=== PATIENT | male | born 1980 | race African-American/Black ===

== ENCOUNTER 2018-12-13 22:05 | Emergency (ER) | payer OTHER ==
[~2018-12-13] VITALS: Ht 185.4 cm; Wt 121.6 kg
[2018-12-13] MEDS ORDERED: AMLODIPINE BESY10 MG PO (22:21)
[2018-12-13] MEDS ORDERED: HYDROCHLOROTHIA25 M1 PO (22:22)
[2018-12-13 23:53] LABS: ABSOLUTE NEUTROPHILS 3.5 thou/uL (1.4-8.2); BASOPHILS 0.9 % (0.0-2.0); EOSINOPHILS 2.4 % (0.0-3.0); HEMATOCRIT 44.3 % (42.0-52.0); HEMOGLOBIN 15.3 gm/dL (14.0-18.0); LYMPHOCYTES 42.1 % (24.0-44.0); MCH 29.4 pg (26.0-34.0); MCHC 34.6 g/dL (28.0-37.0); MCV 84.8 fL (80.0-100.0); MONOCYTES 7.6 % (1.0-8.0); PLATELET COUNT 198 thou/uL (150-400); RBC 5.22 mil/uL (4.50-6.00); RDW 13.5 % (10.5-14.5); WBC 7.5 thou/uL (4.0-11.0)
[2018-12-14 00:05] LABS: ANION GAP 8 mmol/L (7-16); BUN 16 mg/dL (7-18); CALCIUM 9.2 mg/dL (8.5-10.1); CHLORIDE 98 mmol/L (98-107); CO2 32 mmol/L (21-32); CREATININE 1.4 mg/dL (0.7-1.3); GLUCOSE 110 mg/dL (74-106); POTASSIUM 3.3 mmol/L (3.5-5.1); SODIUM 138 mmol/L (136-145)
[2018-12-14 00:18] LABS: TROPONIN-I <0.06 ng/mL (<0.06)
[2018-12-14 01:04] VITALS: BP 150/101
--- NOTE | 2018-12-14 08:02 | EKG ---
[address] [address] [place] [place] [address] ELECTROCARDIOGRAM REPORT Name: LIZZETTE TORRES Room #: DEP Fercho#: [id number] ������������������ Admission: 12/13/18 ������������������ Attend Phys: Discharge: 12/14/18 ������������������ Date of : 80 Report #: [id number] ����������������������������������������������������������������� [id number] THIS REPORT FOR: //name// [facility] ED Test Date: 2018-12-13 Test Time: 23:49:27 Pat Name: LIZZETTE TORRES Department: Room: Gender: Physician [facility] : 1980 Requested By: Alden Betancourt Order Number: [id number] MD: Tray Chaudhary Measurements Intervals [place] Rate: 65 P: 30 [place]: 171 QRS: -17 QRSD: 108 T: 159 QT: 421 QTc: 438 Interpretive Statements Sinus rhythm Left ventricular hypertrophy Abnrm T, consider ischemia, anterolateral lds No previous ECG available for comparison Electronically Signed On 12-14-2018 8:02:21 CDT by Tray Chaudhary [email or web address] ��������������������������������������������� <ELECTRONICALLY SIGNED> ���������������������������������������� By: Tray Chaudhary MD, [facility] ��������������������������������������������� 12/14/18 [id number] Tray Chaudhary MD, FACC /EPI
== END 2018-12-14 01:05 | disposition home or self-care (01) ==
LOC: ER 22:05
PROVIDERS: Emergency Medicine
DX: I10 Essential (primary) hypertension (principal); R42 Dizziness and giddiness; F17.210 Nicotine dependence, cigarettes, uncomplicated; Z88.8 Allergy status to other drugs, medicaments and biological substances

== ENCOUNTER 2019-02-06 05:38 | Day surgery (SDC) | payer OTHER ==
[~2019-02-06] VITALS: Ht 185.4 cm; Wt 122.0 kg
--- NOTE | ~2019-02-06 | O ---
[facility] [place] [address] OPERATIVE REPORT Name: LIZZETTE TORRES Room #: 150-8 [facility] M.R.#: [id number] Admission: 02/06/19 ������������������ Attend Phys: James Gillette MD Discharge: ������������������ Date of : 80 Report #: [id number] THIS REPORT FOR: //name// CC: Melanie Soy Gillette DATE OF SERVICE: 02/06/2019 PREOPERATIVE DIAGNOSIS: Umbilical hernia. POSTOPERATIVE DIAGNOSIS: Umbilical hernia. OPERATIVE PROCEDURE DONE: Laparoscopic repair of umbilical hernia with Ventralight mesh. OPERATING SURGEON: James Gillette MD. PUMP PRESS OPERATOR: Barrera. INDICATIONS FOR THE PROCEDURE: The patient is a 38-year-old gentleman who presented with complaints of umbilical hernia that he has been having for many years and has been increasing in size. He wished to have this repaired. The patient was advised laparoscopic repair of the same. The patient showed understanding and agreed to proceed. DESCRIPTION OF PROCEDURE: After explaining to the patient in detail and informed consent was obtained, the patient was identified in the preoperative holding area. The patient was transferred to the operating room and was placed in supine position. Sequential compression devices were placed for DVT prophylaxis. Preoperative antibiotics were given. After induction of anesthesia, the abdomen was prepped and draped in a sterile fashion. Through a left upper quadrant 1 cm incision using Optiview technique, peritoneal cavity was entered and pneumoperitoneum was created. So thereafter, under direct vision, another 11 mm trocar was placed in the left flank and another 5 mm trocar was placed in the left lower quadrant. On initial inspection, the patient was noted to have a 2.5 cm sized umbilical hernia. I took most of the hernial sac out and the surrounding preperitoneal fat was dissected free. The hernia was very thinned out and therefore, I did not do much of sac removal at the dome stump. Once this was complete, I then placed an 11.5 cm size Ventralight mesh into the abdomen and prior to this, a [place]-Hua suture was placed in the center of the adherent site of the mesh. Two interrupted [place]-Hua sutures were placed in the superior and inferior aspect of the hernial defect to approximate the defect. The mesh was then attached anteriorly using the suture that was placed in the center of the mesh using a suture passer, but again approximating the hernial defect with a suture. Using a SecureStrap, I then [address] [address] OPERATIVE REPORT Name: LIZZETTE TORRES Room #: 150-8 [facility].Julia#: [id number] Admission: 02/06/19 ������������������ Attend Phys: James Gillette MD Discharge: ������������������ Date of : 80 Report #: [id number] placed tacks at 1 cm intervals circumferentially. Absolute hemostasis was ensured. The abdomen was then desufflated. Incisions were closed with 4-0 Monocryl. The 11 mm port site incision was closed in layers using 0 Vicryl for the fascia and skin was closed with 4-0 Monocryl for all the incision. Dermabond was applied. The patient was stable at the end of the procedure. The patient was awoken from anesthesia and was transferred to the recovery room in stable condition. ESTIMATED BLOOD LOSS: Minimal. CONDITION OF THE PATIENT: Stable. FLUIDS GIVEN: Per anesthesia notes. SPECIMEN SENT: None. COMPLICATIONS: None. ANESTHESIA: General anesthesia. ��������������������������������������������� ���������������������������������������� By: ��������������������������������������������� 0936 [id number] James Gillette MD /nt
[~2019-02-06 05:38] MED LIST: AMLODIPINE BESY10 MG PO; DIOVAN 80 MG TA80 M1 PO; HYDROCHLOROTHIA25 M1 PO
[2019-02-06 07:17] LABS: CALCIUM 9.7 mg/dL (8.5-10.1); CREATININE 1.6 mg/dL (0.7-1.3); POTASSIUM 3.7 mmol/L (3.5-5.1)
[2019-02-06 07:39] VITALS: BP 147/99
[2019-02-06] MEDS ORDERED: NORCO 5-325 TA1 EACH PO (09:20)
[2019-02-06 09:46] VITALS: BP 147/99
== END 2019-02-06 10:40 | disposition home or self-care (01) ==
LOC: TBA 05:38 → OR 05:38 → TBA 05:39 → OR 10:09
PROVIDERS: Surgery
DX: K42.9 Umbilical hernia without obstruction or gangrene (principal); I10 Essential (primary) hypertension; Z98.890 Other specified postprocedural states; Z79.899 Other long term (current) drug therapy; Z88.8 Allergy status to other drugs, medicaments and biological substances; Z87.891 Personal history of nicotine dependence; Z98.52 Vasectomy status; Z79.891 Long term (current) use of opiate analgesic
CPT/HCPCS: 50010; 50101; 50249; 50386; 50555; 50558; 50980; 50984; 52265; 54022; 54105; 54118; 56525; 56526; 56530; 57092; 62110; 62900; 70005

== ENCOUNTER 2021-05-27 10:37 | Emergency (ER) | payer OTHER ==
[~2021-05-27] VITALS: Ht 185.4 cm; Wt 117.9 kg
[~2021-05-27 10:37] MED LIST changes: +NORCO 5-325 TA1 EACH PO
[2021-05-27 11:11] LABS: ABSOLUTE NEUTROPHILS 4.3 thou/uL (1.4-8.2); BASOPHILS 0.7 % (0.0-2.0); EOSINOPHILS 3.3 % (0.0-3.0); HEMATOCRIT 42.3 % (42.0-52.0); HEMOGLOBIN 14.4 gm/dL (14.0-18.0); LYMPHOCYTES 30.1 % (24.0-44.0); MCH 30.1 pg (26.0-34.0); MCV 88.5 fL (80.0-100.0); MONOCYTES 7.8 % (1.0-8.0); PLATELET COUNT 176 thou/uL (150-400); POLYS 58.1 % (36.0-66.0); RBC 4.78 mil/uL (4.50-6.00); RDW 13.8 % (10.5-14.5); WBC 7.5 thou/uL (4.0-11.0)
[2021-05-27 11:24] LABS: CALCIUM 9.1 mg/dL (8.5-10.1); CREATININE 1.7 mg/dL (0.7-1.3)
[2021-05-27 11:36] LABS: ALBUMIN 3.7 g/dL (3.4-5.0); TOTAL BILIRUBIN 0.7 mg/dL (0.2-1.0); TOTAL PROTEIN 8.2 g/dL (6.4-8.2)
[2021-05-27 12:03] LABS: URINE BILIRUBIN NEGATIVE (Negative); URINE BLOOD NEGATIVE (Negative); URINE CLARITY CLEAR; URINE COLOR YELLOW; URINE GLUCOSE-RANDOM* NEGATIVE (Negative); URINE KETONES NEGATIVE (Negative); URINE LEUKOCYTES-REFLEX NEGATIVE (Negative); URINE NITRITE-REFLEX NEGATIVE (Negative); URINE PROTEIN (DIPSTICK) NEGATIVE (Negative); URINE SPECIFIC GRAVITY 1.025 (1.005-1.035); URINE UROBILINOGEN 0.2 E.U./dl (0.2-1.0)
[2021-05-27] MEDS ORDERED: NORVASC10 MG PO (13:08)
[2021-05-27] MEDS ORDERED: HYDROCHLOROTHIA25 M1 PO (13:08)
[2021-05-27] MEDS ORDERED: VALSARTAN80 MG PO (13:08)
[2021-05-27 14:05] VITALS: BP 155/89
--- NOTE | 2021-05-28 16:11 | EKG ---
[address] [address] [place] [address] ELECTROCARDIOGRAM REPORT Name: LIZZETTE TORRES Room #: YOUNG Brantley#: [id number] Admission: 05/27/21 Attend Phys: Discharge: 05/27/21 Date of : [birth year] Report #: [id number] [facility] ED Test Date: 2021-05-27 Test Time: 11:03:12 Pat Name: LIZZETTE TORRES Department: Room: Gender: M A Class Lineman: Unknown : 1980 Requested By: Joana Gregory Order Number: [id number] MD: Mehul Gannon Measurements Intervals [place] Rate: 89 P: 30 [place]: 167 QRS: -24 QRSD: 94 T: 118 QT: 368 QTc: 448 Interpretive Statements Sinus rhythm Probable left atrial enlargement RSR' in V1 or V2, probably normal variant Probable LVH with secondary repol abnrm Baseline wander in lead(s) I,III,aVR,aVL,aVF,V5,V6 Compared to ECG 12/13/2018 23:49:27 RSR' in V1 or V2 now present ST (T wave) deviation now present Possible ischemia no longer present Electronically Signed On 05-28-2021 16:10:52 CDT by Mehul Gannon [email or web address] <ELECTRONICALLY SIGNED> By: Mehul Gannon MD, [facility] 05/28/21 1610 1103 110 Mehul Gannon MD, [facility] /EPI
== END 2021-05-27 14:19 | disposition home or self-care (01) ==
LOC: ER 10:37
PROVIDERS: Emergency Medicine; Nurse Practitioner Family
DX: R06.00 Dyspnea, unspecified (principal); I10 Essential (primary) hypertension; K21.9 Gastro-esophageal reflux disease without esophagitis; F17.210 Nicotine dependence, cigarettes, uncomplicated; Z98.52 Vasectomy status; Z79.2 Long term (current) use of antibiotics; Z79.899 Other long term (current) drug therapy; Z88.8 Allergy status to other drugs, medicaments and biological substances

== ENCOUNTER 2021-06-15 09:01 | Emergency (ER) | payer OTHER ==
[~2021-06-15] VITALS: Ht 185.4 cm; Wt 122.5 kg
[~2021-06-15 09:01] MED LIST changes: +NORVASC10 MG PO; +VALSARTAN80 MG PO
[2021-06-15] MEDS ORDERED: WELLBUTRIN PO (11:57)
[2021-06-15] MEDS ORDERED: PERCOCET 7.5-31 EAC1 PO (14:55)
[2021-06-15 16:32] VITALS: BP 154/101
== END 2021-06-15 16:36 | disposition home or self-care (01) ==
LOC: ER 09:01
DX: S42.492A Other displaced fracture of lower end of left humerus, initial encounter for closed fracture (principal); S52.042A Displaced fracture of coronoid process of left ulna, initial encounter for closed fracture; S53.195A Other dislocation of left ulnohumeral joint, initial encounter; I10 Essential (primary) hypertension; K21.9 Gastro-esophageal reflux disease without esophagitis; F17.210 Nicotine dependence, cigarettes, uncomplicated; Z79.891 Long term (current) use of opiate analgesic; Z79.899 Other long term (current) drug therapy; Z88.8 Allergy status to other drugs, medicaments and biological substances; Y36 Operations of war; Y93.89 Activity, other specified; Y92.89 Other specified places as the place of occurrence of the external cause; Y99.8 Other external cause status